=== PATIENT | male | born 1950 | race Two or more races ===

== ENCOUNTER 2022-10-21 19:18 | Emergency (ER) | payer OTHER ==
[~2022-10-21] VITALS: Ht 177.8 cm; Wt 153.0 kg
[2022-10-21 20:28] LABS: Urine Bacteria NONE SEEN /hpf (None Seen); Urine Blood Negative /uL (Negative); Urine WBC <1 /hpf (0 - 3)
[2022-10-21 21:35] LABS: Albumin 3.7 g/dL (3.4-5.0); BUN/Creatinine Ratio 8.7 (10.0-20.0); Calcium 9.5 mg/dL (8.5-10.1); Potassium 4.2 mmol/L (3.5-5.1)
[2022-10-21 21:38] LABS: Bilirubin, Total 0.4 mg/dL (0.2-1.0); Total Protein 7.7 g/dL (6.4-8.2)
[2022-10-21 21:59] LABS: Basophils # (auto) 0.1 10 ^3/uL (0-0.2); Basophils % (auto) 0.8 % (0.0-2.0); Eosinophils # (auto) 0.3 10 ^3/uL (0-0.8); Eosinophils % (auto) 1.9 % (0.0-7.0); Hematocrit 46.8 % (41.0-53.0); Hemoglobin 15.9 g/dL (13.5-17.5); Lymphocytes # (auto) 3.5 10 ^3/uL (0.4-5.4); Lymphocytes % (auto) 25.9 % (10.0-50.0); Mean Corpuscular Hemoglobin 30.7 pg (28.0-32.0); Mean Corpuscular Hgb Conc. 33.9 g/dL (32.0-36.0); Mean Corpuscular Volume 90.6 fL (80.0-100.0); Monocytes # (auto) 0.9 10 ^3/uL (0-1.3); Neutrophils # (auto) 8.7 10 ^3/uL (1.6-8.6); Neutrophils % (auto) 64.4 % (37.0-80.0); Nucleated Red Blood Cells % 0.1 %; Red Blood Cells 5.16 10^6/uL (4.5-5.90); Red Cell Distribution Width 13.9 % (11.8-14.3); White Blood Cell 13.5 10^3/uL (4.4-10.8)
[2022-10-21] MEDS ORDERED: HYDROmorphone HCL 2 MG/ML VL/or syr IV ONE (22:30)
[2022-10-21] MEDS ORDERED: SODIUM CHLORIDE 0.9% 500 ML IV ONE (22:30)
[2022-10-21] MEDS ORDERED: ONDANSETRON HCL 4 MG/2 ML VIAL IV ONE (22:30)
[2022-10-22 05:15] VITALS: BP 143/66
[2022-10-22] MEDS ORDERED: AZIT250T9 PO (05:51)
[2022-10-22] MEDS ORDERED: PERCOT PO (05:51)
== END 2022-10-22 06:28 | disposition home or self-care (01) ==
LOC: ER 19:18
DX: K40.90 Unilateral inguinal hernia, without obstruction or gangrene, not specified as recurrent (principal); Z88.0 Allergy status to penicillin; Z91.040 Latex allergy status
CPT/HCPCS: 36415; 74176; 80053; 81001; 83690; 85025; 96361; 96374; 96375; 99285; J1170; J2405; J7040

== ENCOUNTER 2023-08-14 22:22 | Inpatient (IN) | payer OTHER ==
[~2023-08-14] VITALS: Ht 177.8 cm; Wt 79.9 kg
[~2023-08-14 22:22] MED LIST: AZIT-43 PO; PERCOT PO
[2023-08-14] MEDS: MAALOX PLUS or MAALOX 30 ML PO ONE (23:05)
[2023-08-14] MEDS: LIDOCAINE VISCOUS 2% 15ML UD MT ONE (23:05)
[2023-08-14] MEDS: ONDANSETRON ODT 4 MG TAB PO ONE (23:06)
[2023-08-14 23:07] LABS: Basophils # (auto) 0.2 10 ^3/uL (0-0.2); Basophils % (auto) 1.2 % (0.0-2.0); Eosinophils # (auto) 0.5 10 ^3/uL (0-0.8); Eosinophils % (auto) 3.5 % (0.0-7.0); Hematocrit 48.5 % (41.0-53.0); Hemoglobin 15.8 g/dL (13.5-17.5); Lymphocytes % (auto) 23.2 % (10.0-50.0); Mean Corpuscular Hgb Conc. 32.7 g/dL (32.0-36.0); Mean Corpuscular Volume 91.9 fL (80.0-100.0); Monocytes # (auto) 1.5 10 ^3/uL (0-1.3); Monocytes % (auto) 11.3 % (0.0-12.0); Neutrophils # (auto) 7.9 10 ^3/uL (1.6-8.6); Neutrophils % (auto) 60.8 % (37.0-80.0); Red Blood Cells 5.28 10^6/uL (4.5-5.90); Red Cell Distribution Width 14.7 % (11.8-14.3); White Blood Cell 12.9 10^3/uL (4.4-10.8)
[2023-08-14 23:10] LABS: Urine Bacteria NONE SEEN /hpf (None Seen); Urine Blood Negative /uL (Negative); Urine Clarity Clear (Clear); Urine Color Yellow (Yellow); Urine Hyaline Cast FEW /lpf (0 - 2); Urine Mucus FEW (None Seen); Urine Protein, UAD 2+ (Negative); Urine Specific Gravity 1.025 (1.001-1.035); Urine WBC 1 /hpf (0 - 3)
[2023-08-14 23:13] LABS: Chloride 105 mmol/L (98-107); Potassium 4.2 mmol/L (3.5-5.1); Sodium 139 mmol/L (136-145)
[2023-08-14 23:14] LABS: Anion Gap 8 (5-15); Calcium 9.7 mg/dL (8.7-10.4); Carbon Dioxide 26 mmol/L (20-30)
[2023-08-14 23:19] LABS: BUN/Creatinine Ratio 11.9 (10.0-20.0); Blood Urea Nitrogen 14 mg/dL (9-23); Glucose 117 mg/dL (74-106); Lipase 28 U/L (12-53)
[2023-08-14] MEDS: SODIUM CHLORIDE 0.9% 1,000 ML IV ONE (23:47)
[2023-08-15] VITALS (7 sets, daily range): BP systolic 126–133; BP diastolic 50–66; PULSE 70–75; RESP 16–20; TEMP 97.8–98.8; O2SAT 94–97
[2023-08-15] MEDS: ONDANSETRON HCL 4 MG/2 ML VIAL IV ONE (01:02)
[2023-08-15] MEDS: HYDROmorphone HCL 2 MG/ML VL/or syr IV ONE (01:05)
[2023-08-15] MEDS: PIPERACILLIN-TAZOB 3.375GM 100 ML IV ONE (01:05)
[2023-08-15] MEDS ORDERED: ACETAMINOPHEN 325 MG TAB PO PRN (01:15)
[2023-08-15] MEDS: SODIUM CHLORIDE 0.9% 1,000 ML IV SCH (01:15)
[2023-08-15] MEDS: metroNIDAZOLE 500MG/100ML 100 ML IV ONE (01:36)
[2023-08-15] MEDS: levoFLOXacin 500MG 100 ML IV SCH (03:19)
[2023-08-15 04:45] LABS: Basophils # (auto) 0.1 10 ^3/uL (0-0.2); Eosinophils # (auto) 0.4 10 ^3/uL (0-0.8); Eosinophils % (auto) 3.5 % (0.0-7.0); Hematocrit 42.8 % (41.0-53.0); Hemoglobin 14.2 g/dL (13.5-17.5); Lymphocytes # (auto) 2.5 10 ^3/uL (0.4-5.4); Lymphocytes % (auto) 24.7 % (10.0-50.0); Mean Corpuscular Hemoglobin 30.7 pg (28.0-32.0); Mean Corpuscular Hgb Conc. 33.3 g/dL (32.0-36.0); Mean Corpuscular Volume 92.2 fL (80.0-100.0); Monocytes # (auto) 1.3 10 ^3/uL (0-1.3); Monocytes % (auto) 12.6 % (0.0-12.0); Neutrophils % (auto) 58.2 % (37.0-80.0); Red Blood Cells 4.64 10^6/uL (4.5-5.90); Red Cell Distribution Width 14.7 % (11.8-14.3); White Blood Cell 10.3 10^3/uL (4.4-10.8)
[2023-08-15 05:00] LABS: Alanine Aminotransferase 173 U/L (7-40); Albumin 3.4 g/dL (3.2-4.8); Alkaline Phosphatase 369 U/L (46-116); Anion Gap 6 (5-15); Aspartate Aminotransferase 193 U/L (13-40); BUN/Creatinine Ratio 12.6 (10.0-20.0); Bilirubin, Total 3.6 mg/dL (0.2-1.0); Blood Urea Nitrogen 13 mg/dL (9-23); Calcium 8.7 mg/dL (8.7-10.4); Carbon Dioxide 26 mmol/L (20-30); Chloride 107 mmol/L (98-107); Glucose 76 mg/dL (74-106); Potassium 4.3 mmol/L (3.5-5.1); Sodium 139 mmol/L (136-145); Total Protein 5.7 g/dL (5.7-8.2)
[2023-08-15] MEDS ORDERED: NITROGLYCERIN 0.4 MG SL TAB SL PRN (06:15)
[2023-08-15] MEDS ORDERED: MORPHINE SULFATE INJ 2 MG/ml SYRG IV PRN (06:15)
[2023-08-15 08:04] LABS: Lactic Acid w/Reflex 2.7 mmol/L (0.4-2.0)
[2023-08-15] MEDS: SODIUM CHLORIDE 0.9% 1,000 ML IV ONE (08:33)
[2023-08-15] MEDS: ONDANSETRON HCL 4 MG/2 ML VIAL IV PRN (08:34)
[2023-08-15] MEDS: MORPHINE SULFATE INJ 2 MG/ml SYRG IV PRN (08:35)
[2023-08-15] MEDS: metroNIDAZOLE 500MG/100ML 100 ML IV SCH (13:47)
[2023-08-15] MEDS: HYDROcodone-ACET 5/325MG TAB PO PRN (17:16)
[2023-08-16] VITALS (7 sets, daily range): BP systolic 94–128; BP diastolic 45–60; PULSE 60–88; RESP 16–19; TEMP 97.7–98.4; O2SAT 91–96
[2023-08-16] MEDS: DOCUSATE SOD 100 MG CAP PO PRN (00:01)
[2023-08-16 07:15] LABS: Basophils # (auto) 0.1 10 ^3/uL (0-0.2); Basophils % (auto) 0.9 % (0.0-2.0); Eosinophils # (auto) 0.1 10 ^3/uL (0-0.8); Eosinophils % (auto) 1.2 % (0.0-7.0); Hematocrit 44.1 % (41.0-53.0); Hemoglobin 14.1 g/dL (13.5-17.5); Lymphocytes # (auto) 2.1 10 ^3/uL (0.4-5.4); Lymphocytes % (auto) 19.9 % (10.0-50.0); Mean Corpuscular Hemoglobin 30.2 pg (28.0-32.0); Mean Corpuscular Hgb Conc. 31.9 g/dL (32.0-36.0); Mean Corpuscular Volume 94.6 fL (80.0-100.0); Monocytes # (auto) 1.1 10 ^3/uL (0-1.3); Monocytes % (auto) 10.6 % (0.0-12.0); Neutrophils % (auto) 67.4 % (37.0-80.0); Red Blood Cells 4.66 10^6/uL (4.5-5.90); Red Cell Distribution Width 15.5 % (11.8-14.3); White Blood Cell 10.3 10^3/uL (4.4-10.8)
[2023-08-16 07:36] LABS: INR 1.22 (0.9-1.15); Prothrombin Time 12.6 sec (9.3-11.8)
[2023-08-16 07:48] LABS: Alanine Aminotransferase 147 U/L (7-40); Albumin 3.3 g/dL (3.2-4.8); Alkaline Phosphatase 338 U/L (46-116); Anion Gap 12 (5-15); Aspartate Aminotransferase 190 U/L (13-40); BUN/Creatinine Ratio 16.5 (10.0-20.0); Bilirubin, Total 4.2 mg/dL (0.2-1.0); Blood Urea Nitrogen 17 mg/dL (9-23); Calcium 8.5 mg/dL (8.7-10.4); Carbon Dioxide 20 mmol/L (20-30); Chloride 107 mmol/L (98-107); Glucose 51 mg/dL (74-106); Sodium 139 mmol/L (136-145); Total Protein 5.4 g/dL (5.7-8.2)
[2023-08-16] MEDS: PANTOPRAZOLE 40 MG/10 ML VIAL INJ IV SCH (09:16)
[2023-08-16] MEDS: MAALOX PLUS or MAALOX 30 ML PO PRN (11:19)
[2023-08-16] MEDS: SODIUM CHLORIDE 0.9% 500 ML IV ONE (20:24)
[2023-08-16] MEDS: metroNIDAZOLE 500MG/100ML 100 ML IV SCH (23:57)
[2023-08-17] VITALS (7 sets, daily range): BP systolic 116–133; BP diastolic 58–65; PULSE 62–74; RESP 17–20; TEMP 97.5–98.8; O2SAT 91–94
[2023-08-17 06:26] LABS: % Iron Saturation 44.4 % (20-55)
[2023-08-17 09:24] LABS: Hepatitis B Core Total AB Negative (Negative)
[2023-08-17 11:29] LABS: Triglycerides 87 mg/dL (< 150)
[2023-08-17 11:30] LABS: Alanine Aminotransferase 176 U/L (7-40); Albumin 3.3 g/dL (3.2-4.8); Alkaline Phosphatase 340 U/L (46-116); Anion Gap 7 (5-15); Aspartate Aminotransferase 314 U/L (13-40); BUN/Creatinine Ratio 11.9 (10.0-20.0); Bilirubin, Total 4.6 mg/dL (0.2-1.0); Blood Urea Nitrogen 12 mg/dL (9-23); Calcium 8.5 mg/dL (8.5-10.1); Carbon Dioxide 22 mmol/L (20-30); Chloride 107 mmol/L (98-107); Cholesterol 130 mg/dL (< 200); Glucose 101 mg/dL (74-106); HDL Cholesterol 25 mg/dL (40-59); LDL Cholesterol 64 mg/dL (< 100); Sodium 136 mmol/L (136-145); Total Protein 5.5 g/dL (5.7-8.2)
[2023-08-17 11:32] LABS: INR 1.19 (0.9-1.15); Partial Thromboplastin Time 26.8 SEC (24.5-34.5); Prothrombin Time 12.4 sec (9.3-11.8)
[2023-08-17 11:34] LABS: Hepatitis A Ab IgM Negative; Hepatitis A Total Antibody Negative (Negative); Hepatitis B Core IgM Negative; Hepatitis B Surface Antibody Negative (Negative); Hepatitis B Surface Antigen Negative (Negative); Hepatitis C Antibody Negative (Negative)
[2023-08-17 11:39] LABS: CRP High Sensitivity 6.26 mg/dL (<1.0)
[2023-08-17 11:40] LABS: Lipase 41 U/L (12-53); Magnesium 2.1 mg/dL (1.6-2.6)
[2023-08-17 11:48] LABS: Basophils # (auto) 0.1 10 ^3/uL (0-0.2); Basophils % (auto) 1.1 % (0.0-2.0); Eosinophils # (auto) 0.4 10 ^3/uL (0-0.8); Eosinophils % (auto) 3.6 % (0.0-7.0); Hematocrit 42.9 % (41.0-53.0); Hemoglobin 14.1 g/dL (13.5-17.5); Lymphocytes # (auto) 2.7 10 ^3/uL (0.4-5.4); Lymphocytes % (auto) 26.6 % (10.0-50.0); Mean Corpuscular Hemoglobin 30.5 pg (28.0-32.0); Mean Corpuscular Hgb Conc. 32.9 g/dL (32.0-36.0); Mean Corpuscular Volume 92.6 fL (80.0-100.0); Monocytes # (auto) 1.2 10 ^3/uL (0-1.3); Monocytes % (auto) 11.6 % (0.0-12.0); Neutrophils # (auto) 5.9 10 ^3/uL (1.6-8.6); Neutrophils % (auto) 57.1 % (37.0-80.0); Nucleated Red Blood Cells % 0.2 %; Red Blood Cells 4.64 10^6/uL (4.5-5.90); Red Cell Distribution Width 15.1 % (11.8-14.3); White Blood Cell 10.3 10^3/uL (4.4-10.8)
[2023-08-17 14:15] LABS: Salicylate < 3.0 mg/dL (2.8-20.0)
[2023-08-17] MEDS: URSODIOL 300 MG CAP PO SCH (22:00)
[2023-08-18] VITALS (7 sets, daily range): BP systolic 117–136; BP diastolic 57–66; PULSE 71–76; RESP 16–20; TEMP 97.1–97.9; O2SAT 93–97
[2023-08-18] MEDS: SODIUM CHLORIDE 0.9% 500 ML IV ONE (04:45)
[2023-08-18 05:43] LABS: Basophils # (auto) 0.1 10 ^3/uL (0-0.2); Eosinophils # (auto) 0.2 10 ^3/uL (0-0.8); Eosinophils % (auto) 2.5 % (0.0-7.0); Hemoglobin 13.3 g/dL (13.5-17.5); Lymphocytes # (auto) 2.1 10 ^3/uL (0.4-5.4); Lymphocytes % (auto) 22.2 % (10.0-50.0); Mean Corpuscular Hemoglobin 30.7 pg (28.0-32.0); Mean Corpuscular Hgb Conc. 33.3 g/dL (32.0-36.0); Mean Corpuscular Volume 92.1 fL (80.0-100.0); Monocytes # (auto) 1.1 10 ^3/uL (0-1.3); Monocytes % (auto) 11.8 % (0.0-12.0); Neutrophils % (auto) 62.5 % (37.0-80.0); Nucleated Red Blood Cells % 0.2 %; Red Blood Cells 4.35 10^6/uL (4.5-5.90); Red Cell Distribution Width 15.2 % (11.8-14.3); White Blood Cell 9.5 10^3/uL (4.4-10.8)
[2023-08-18 06:16] LABS: Alanine Aminotransferase 162 U/L (7-40); Albumin 3.2 g/dL (3.2-4.8); Alkaline Phosphatase 328 U/L (46-116); Anion Gap 8 (5-15); Aspartate Aminotransferase 294 U/L (13-40); BUN/Creatinine Ratio 10.5 (10.0-20.0); Blood Urea Nitrogen 10 mg/dL (9-23); Calcium 8.3 mg/dL (8.5-10.1); Carbon Dioxide 22 mmol/L (20-30); Chloride 106 mmol/L (98-107); Glucose 71 mg/dL (74-106); Potassium 4.3 mmol/L (3.5-5.1); Sodium 136 mmol/L (136-145)
[2023-08-18 06:17] LABS: Bilirubin, Direct 4.5 mg/dL (<0.3); Bilirubin, Total 5.5 mg/dL (0.2-1.0); Total Protein 5.2 g/dL (5.7-8.2)
[2023-08-18 06:25] LABS: CRP High Sensitivity 6.34 mg/dL (<1.0)
[2023-08-18 06:37] LABS: Lipase 32 U/L (12-53)
[2023-08-18 06:50] LABS: Lactic Acid w/Reflex 2.8 mmol/L (0.4-2.0)
[2023-08-18] MEDS: IBUPROFEN 600 MG TAB PO PRN (07:51)
[2023-08-18 08:07] LABS: AFP Serum Tumor Marker <1.8 ng/mL (0.0-8.4); Cancer Antigen (CA) 125 43.7 U/mL (Not Estab.)
[2023-08-18] MEDS: CHOLECALCIFEROL (VITD3) 2,000 UNIT CAP/TAB PO SCH (10:10)
[2023-08-18] MEDS: PANTOPRAZOLE 40 MG/10 ML VIAL INJ IV SCH (10:10)
[2023-08-18] MEDS: HYDROmorphone HCL 2 MG/ML VL/or syr IV PRN (11:42)
[2023-08-18] MEDS: SODIUM CHLORIDE 0.9% 1,000 ML IV SCH (14:40)
[2023-08-18 21:06] LABS: CA 27.29 223.7 U/mL (0.0-38.6)
[2023-08-19 05:00] VITALS: BP 124/52; PULSE 76; RESP 20; TEMP 97.6; O2SAT 92
[2023-08-19 06:07] LABS: Alanine Aminotransferase 148 U/L (7-40); Alkaline Phosphatase 336 U/L (46-116); Anion Gap 9 (5-15); Aspartate Aminotransferase 281 U/L (13-40); BUN/Creatinine Ratio 13.5 (10.0-20.0); Bilirubin, Direct 5.3 mg/dL (<0.3); Blood Urea Nitrogen 14 mg/dL (9-23); Calcium 8.2 mg/dL (8.5-10.1); Carbon Dioxide 22 mmol/L (20-30); Chloride 107 mmol/L (98-107); Glucose 57 mg/dL (74-106); Potassium 4.7 mmol/L (3.5-5.1); Sodium 138 mmol/L (136-145)
[2023-08-19 06:08] LABS: Bilirubin, Total 6.3 mg/dL (0.2-1.0); Total Protein 4.8 g/dL (5.7-8.2)
[2023-08-19 06:09] LABS: Basophils # (auto) 0.1 10 ^3/uL (0-0.2); Basophils % (auto) 1.1 % (0.0-2.0); Eosinophils # (auto) 0.2 10 ^3/uL (0-0.8); Eosinophils % (auto) 2.2 % (0.0-7.0); Hematocrit 41.2 % (41.0-53.0); Hemoglobin 13.6 g/dL (13.5-17.5); Lymphocytes # (auto) 1.8 10 ^3/uL (0.4-5.4); Lymphocytes % (auto) 20.3 % (10.0-50.0); Mean Corpuscular Hemoglobin 30.6 pg (28.0-32.0); Mean Corpuscular Hgb Conc. 33.1 g/dL (32.0-36.0); Mean Corpuscular Volume 92.5 fL (80.0-100.0); Monocytes % (auto) 11.6 % (0.0-12.0); Neutrophils # (auto) 5.6 10 ^3/uL (1.6-8.6); Neutrophils % (auto) 64.8 % (37.0-80.0); Nucleated Red Blood Cells % 0.4 %; Red Blood Cells 4.46 10^6/uL (4.5-5.90); Red Cell Distribution Width 15.7 % (11.8-14.3); White Blood Cell 8.7 10^3/uL (4.4-10.8)
[2023-08-19 06:16] LABS: CRP High Sensitivity 7.38 mg/dL (<1.0)
[2023-08-19 06:29] LABS: Lactic Acid w/Reflex 3.3 mmol/L (0.4-2.0)
[2023-08-19 07:24] LABS: Lipase 28 U/L (12-53)
[2023-08-19 08:06] LABS: PSA Free 0.11 ng/mL; Prostate Specific Antigen 0.3 ng/mL (0.0-4.0)
[2023-08-19] MEDS: GADOTERATE MEG 10 MMOL/20ml INJ (0.5MMOL/ml) IV ONE (08:21)
[2023-08-19 08:30] VITALS: BP 106/69; PULSE 76; RESP 18; TEMP 97.7; O2SAT 95
[2023-08-19] MEDS: MIDAZOLAM HCL 2MG/2ML 2ml VIAL (1mg/ml) IV ONE (11:30)
[2023-08-19] MEDS: FUROSEMIDE 40 MG/4 ML VIAL IV ONE (11:30)
[2023-08-19] MEDS: fentaNYL CITRATE 100 MCG/2 ML VL IV ONE (11:30)
[2023-08-19] MEDS: LIDOCAINE 2%HCL (LOCAL ANESTH.) INJ 10ml MDV ONE (11:46)
[2023-08-19] MEDS: GELATIN 1 SPONGE SIZE 50 TOP ONE (11:54)
[2023-08-19 13:30] VITALS: BP 128/61; PULSE 83; RESP 18; TEMP 97.9; O2SAT 97
[2023-08-19 15:42] LABS: INR 1.46 (0.9-1.15); Partial Thromboplastin Time 29.4 SEC (24.5-34.5)
[2023-08-19 16:30] VITALS: BP 119/50; PULSE 87; RESP 17; TEMP 97.9; O2SAT 95
[2023-08-19] MEDS: FUROSEMIDE 40 MG/4 ML VIAL IV SCH (18:51)
[2023-08-19 22:00] VITALS: BP 137/67; PULSE 78; RESP 18; TEMP 98.1; O2SAT 93
[2023-08-19] MEDS: LACTULOSE 20Gm/30ML SOLN PO SCH (22:00)
[2023-08-20 05:00] VITALS: BP 118/67; PULSE 82; RESP 18; TEMP 98; O2SAT 97
[2023-08-20 07:21] LABS: Basophils # (auto) 0 10 ^3/uL (0-0.2); Basophils % (auto) 0.4 % (0.0-2.0); Eosinophils # (auto) 0.1 10 ^3/uL (0-0.8); Eosinophils % (auto) 0.6 % (0.0-7.0); Hematocrit 42.3 % (41.0-53.0); Hemoglobin 14.1 g/dL (13.5-17.5); Lymphocytes % (auto) 18.2 % (10.0-50.0); Mean Corpuscular Hemoglobin 30.8 pg (28.0-32.0); Mean Corpuscular Hgb Conc. 33.3 g/dL (32.0-36.0); Mean Corpuscular Volume 92.4 fL (80.0-100.0); Monocytes # (auto) 1.2 10 ^3/uL (0-1.3); Monocytes % (auto) 10.9 % (0.0-12.0); Neutrophils # (auto) 7.7 10 ^3/uL (1.6-8.6); Neutrophils % (auto) 69.9 % (37.0-80.0); Nucleated Red Blood Cells % 0.1 %; Red Blood Cells 4.58 10^6/uL (4.5-5.90); Red Cell Distribution Width 15.3 % (11.8-14.3)
[2023-08-20 07:33] LABS: Alanine Aminotransferase 145 U/L (7-40); Alkaline Phosphatase 359 U/L (46-116); Anion Gap 11 (5-15); BUN/Creatinine Ratio 13.5 (10.0-20.0); Blood Urea Nitrogen 18 mg/dL (9-23); Calcium 8.9 mg/dL (8.5-10.1); Carbon Dioxide 20 mmol/L (20-30); Chloride 105 mmol/L (98-107); Glucose 83 mg/dL (74-106); Potassium 4.5 mmol/L (3.5-5.1); Sodium 136 mmol/L (136-145)
[2023-08-20 07:34] LABS: Albumin 3.3 g/dL (3.2-4.8); Aspartate Aminotransferase 317 U/L (13-40); Bilirubin, Total 6.6 mg/dL (0.2-1.0); Total Protein 5.6 g/dL (5.7-8.2)
[2023-08-20] MEDS: cefTRIAXone 1GM/50ML D5W 50 ML IV SCH (08:36)
[2023-08-20 13:16] VITALS: BP 129/54; PULSE 84; RESP 19; TEMP 97.5; O2SAT 97
[2023-08-20 22:00] VITALS: BP 126/57; PULSE 90; RESP 18; TEMP 97.8; O2SAT 92
[2023-08-21] VITALS (11 sets, daily range): BP systolic 103–136; BP diastolic 40–58; PULSE 75–88; RESP 18–20; TEMP 97.4–98; O2SAT 94–100
[2023-08-21 06:09] LABS: Basophils # (auto) 0 10 ^3/uL (0-0.2); Basophils % (auto) 0.4 % (0.0-2.0); Eosinophils # (auto) 0 10 ^3/uL (0-0.8); Eosinophils % (auto) 0.1 % (0.0-7.0); Hematocrit 43.6 % (41.0-53.0); Hemoglobin 14.3 g/dL (13.5-17.5); Lymphocytes # (auto) 1.4 10 ^3/uL (0.4-5.4); Lymphocytes % (auto) 11.4 % (10.0-50.0); Mean Corpuscular Hemoglobin 30.7 pg (28.0-32.0); Mean Corpuscular Hgb Conc. 32.7 g/dL (32.0-36.0); Mean Corpuscular Volume 93.9 fL (80.0-100.0); Monocytes # (auto) 1.4 10 ^3/uL (0-1.3); Monocytes % (auto) 11.3 % (0.0-12.0); Neutrophils # (auto) 9.6 10 ^3/uL (1.6-8.6); Neutrophils % (auto) 76.8 % (37.0-80.0); Nucleated Red Blood Cells % 0.3 %; Red Blood Cells 4.64 10^6/uL (4.5-5.90); Red Cell Distribution Width 15.8 % (11.8-14.3); White Blood Cell 12.4 10^3/uL (4.4-10.8)
[2023-08-21 06:28] LABS: Alanine Aminotransferase 278 U/L (7-40); Albumin 3.3 g/dL (3.2-4.8); Alkaline Phosphatase 350 U/L (46-116); Anion Gap 19 (5-15); Aspartate Aminotransferase 785 U/L (13-40); BUN/Creatinine Ratio 17.8 (10.0-20.0); Calcium 8.7 mg/dL (8.7-10.4); Carbon Dioxide 14 mmol/L (20-30); Chloride 101 mmol/L (98-107); Glucose 51 mg/dL (74-106); Magnesium 2.4 mg/dL (1.6-2.6); Sodium 134 mmol/L (136-145)
[2023-08-21 06:29] LABS: Bilirubin, Total 7.3 mg/dL (0.2-1.0); Total Protein 5.7 g/dL (5.7-8.2)
[2023-08-21 06:32] LABS: Blood Urea Nitrogen 33 mg/dL (9-23)
[2023-08-21 06:35] LABS: Potassium 5.6 mmol/L (3.5-5.1)
[2023-08-21 06:36] LABS: Lactic Acid w/Reflex 8.2 mmol/L (0.4-2.0)
[2023-08-21 08:06] LABS: CMV IgG Antibody <0.60 U/mL (0.00-0.59); CMV IgM Antibody <30.0 AU/mL (0.0-29.9); EBV Ab VCA IgG Antibody 90.8 U/mL (0.0-17.9); Immunoglobulin A 205 mg/dL (61-437); Immunoglobulin G, Serum 770 mg/dL (603-1613); Immunoglobulin M 71 mg/dL (15-143); PSA Free 0.11 ng/mL; Prostate Specific Antigen 0.3 ng/mL (0.0-4.0)
[2023-08-21] MEDS: SODIUM CHLORIDE 0.9% 1,000 ML IV ONE ×2 (08:44→12:59)
[2023-08-21] MEDS: SODIUM ZIRCONIUM CYCL 10 GM PAK PO ONE ×2 (08:48→16:27)
[2023-08-21 11:07] LABS: EBV Ab VCA IgM Antibody <36.0 U/mL (0.0-35.9)
[2023-08-21 12:47] LABS: Creatinine, Urine 68.57 mg/dL (30.0-125.0)
[2023-08-21] MEDS: oxyCODONE HCL 5MG TAB PO PRN (13:03)
[2023-08-21] MEDS: ALBUMIN 25% 50 ML IV ONE (13:04)
[2023-08-21 13:22] LABS: Urine Bacteria NONE SEEN /hpf (None Seen); Urine Blood Negative /uL (Negative); Urine Clarity HAZY (Clear); Urine Hyaline Cast FEW /lpf (0 - 2); Urine Protein, UAD Negative (Negative); Urine Specific Gravity 1.013 (1.001-1.035); Urine Urobilinogen Normal (Negative); Urine WBC 2 /hpf (0 - 3)
[2023-08-21 13:24] LABS: Urine Color Yellow (Yellow)
[2023-08-21 13:25] LABS: INR 2.2 (0.9-1.15); Prothrombin Time 21.9 sec (9.3-11.8)
[2023-08-21] MEDS: THIAMINE 100mg/ml INJ (200mg/2ml VIAL) IV ONE (13:38)
[2023-08-21] MEDS: ALBUTEROL SULF 2.5 MG/0.5ML(0.5%) NEB SOLN NEB ONE ×2 (13:51→16:11)
[2023-08-21 13:53] LABS: Lactic Acid w/Reflex 11.1 mmol/L (0.4-2.0)
[2023-08-21 14:01] LABS: Base Excess -16.6 mmol/L (-2.0-2.0)
[2023-08-21 14:10] LABS: Alanine Aminotransferase 565 U/L (7-40); Albumin 3.4 g/dL (3.2-4.8); Alkaline Phosphatase 368 U/L (46-116); Anion Gap 23 (5-15); BUN/Creatinine Ratio 21.3 (10.0-20.0); Calcium 8.7 mg/dL (8.5-10.1); Carbon Dioxide 12 mmol/L (20-30); Chloride 100 mmol/L (98-107); Glucose 51 mg/dL (74-106); Sodium 135 mmol/L (136-145)
[2023-08-21 14:11] LABS: Bilirubin, Total 8.5 mg/dL (0.2-1.0); Blood Urea Nitrogen 44 mg/dL (9-23); Total Protein 5.4 g/dL (5.7-8.2)
[2023-08-21 14:21] LABS: Aspartate Aminotransferase 2025 U/L (13-40)
[2023-08-21] MEDS: D5W 5% 1,000 ML IV ONE (14:23)
[2023-08-21] MEDS: ACCU-CHEK COMFORT CURVE STRIP VI SCH (14:23)
[2023-08-21] MEDS: fentaNYL CITRATE 100 MCG/2 ML VL IV ONE (15:30)
[2023-08-21] MEDS: MIDAZOLAM HCL 2MG/2ML 2ml VIAL (1mg/ml) IV ONE (15:30)
[2023-08-21] MEDS: SODIUM BICARB 50mEq/50ml Vial 100 ML in D5W 5% 1,000 ML IV SCH (16:25)
[2023-08-21] MEDS: LACTULOSE 20Gm/30ML SOLN PO SCH (16:26)
[2023-08-21] MEDS: SODIUM BICARB 8.4% 50Meq/50ml SYR INJ IV ONE (16:26)
[2023-08-21] MEDS: FUROSEMIDE 100 MG/10ML VIAL IV ONE (16:27)
[2023-08-21 16:30] LABS: Alanine Aminotransferase 726 U/L (7-40); Albumin 3.4 g/dL (3.2-4.8); Alkaline Phosphatase 322 U/L (46-116); Anion Gap 21 (5-15); Calcium 8.2 mg/dL (8.7-10.4); Carbon Dioxide 11 mmol/L (20-30); Chloride 99 mmol/L (98-107); Glucose 136 mg/dL (74-106); Sodium 131 mmol/L (136-145)
[2023-08-21 16:31] LABS: Bilirubin, Total 8.3 mg/dL (0.2-1.0); Total Protein 5.6 g/dL (5.7-8.2)
[2023-08-21] MEDS: DEXTROSE (50%) 50ML SYRG IV ONE (16:34)
[2023-08-21 16:41] LABS: Aspartate Aminotransferase 2825 U/L (13-40); Potassium 5.6 mmol/L (3.5-5.1)
[2023-08-21 16:54] LABS: BUN/Creatinine Ratio 18.3 (10.0-20.0); Blood Urea Nitrogen 40 mg/dL (9-23)
[2023-08-21] MEDS: HYDROmorphone HCL 2 MG/ML VL/or syr IV PRN (17:01)
[2023-08-21] MEDS: InsuLIN REG 1unit/0.01ml Soln (100units/ml) IV ONE (17:17)
[2023-08-22 01:03] LABS: Lactic Acid w/Reflex 7.8 mmol/L (0.4-2.0)
[2023-08-22 05:00] VITALS: BP 121/59; PULSE 84; RESP 19; TEMP 97.8; O2SAT 90
[2023-08-22 05:38] LABS: Basophils # (auto) 0.1 10 ^3/uL (0-0.2); Basophils % (auto) 0.5 % (0.0-2.0); Eosinophils # (auto) 0 10 ^3/uL (0-0.8); Eosinophils % (auto) 0.1 % (0.0-7.0); Hematocrit 39.1 % (41.0-53.0); Lymphocytes # (auto) 1.9 10 ^3/uL (0.4-5.4); Lymphocytes % (auto) 9.1 % (10.0-50.0); Mean Corpuscular Hemoglobin 30.7 pg (28.0-32.0); Mean Corpuscular Hgb Conc. 33.2 g/dL (32.0-36.0); Mean Corpuscular Volume 92.5 fL (80.0-100.0); Monocytes # (auto) 1.5 10 ^3/uL (0-1.3); Monocytes % (auto) 7.3 % (0.0-12.0); Neutrophils # (auto) 17.6 10 ^3/uL (1.6-8.6); Nucleated Red Blood Cells % 0.6 %; Red Blood Cells 4.22 10^6/uL (4.5-5.90); Red Cell Distribution Width 15.4 % (11.8-14.3); White Blood Cell 21.2 10^3/uL (4.4-10.8)
[2023-08-22 05:59] LABS: Albumin 3.1 g/dL (3.2-4.8); Alkaline Phosphatase 511 U/L (46-116); Anion Gap 13 (5-15); Aspartate Aminotransferase > 1000 U/L (13-40); BUN/Creatinine Ratio 22.1 (10.0-20.0); Calcium 7.3 mg/dL (8.7-10.4); Carbon Dioxide 19 mmol/L (20-30); Chloride 96 mmol/L (98-107); Glucose 153 mg/dL (74-106); Magnesium 2.5 mg/dL (1.6-2.6); Sodium 128 mmol/L (136-145)
[2023-08-22 06:43] LABS: Alanine Aminotransferase > 1000 U/L (7-40); Blood Urea Nitrogen 55 mg/dL (9-23); Potassium 5.6 mmol/L (3.5-5.1)
[2023-08-22 07:05] LABS: Lactic Acid w/Reflex 4.9 mmol/L (0.4-2.0)
[2023-08-22] MEDS: SODIUM ZIRCONIUM CYCL 10 GM PAK PO ONE ×2 (07:30→08:07)
[2023-08-22 07:31] LABS: INR 2.86 (0.9-1.15); Partial Thromboplastin Time 34.6 SEC (24.5-34.5)
[2023-08-22 08:00] VITALS: PULSE 76; PULSE 80; RESP 20; O2SAT 92
[2023-08-22] MEDS: phytonadione 10 MG in SODIUM CHL 0.9% 50 ML IV ONE (08:02)
[2023-08-22] MEDS: LACTULOSE 20Gm/30ML SOLN PO SCH (08:07)
[2023-08-22] MEDS ORDERED: FURO40TA4 PO (08:41)
[2023-08-22] MEDS ORDERED: SODI10PA PO (08:41)
[2023-08-22] MEDS ORDERED: LACT10SO3 PO (08:41)
[2023-08-22] MEDS ORDERED: URSO300C2 PO (08:41)
[2023-08-22] MEDS ORDERED: CEPH250C PO (08:41)
[2023-08-22] MEDS ORDERED: CHOL1CAP47 PO (08:41)
[2023-08-22] MEDS ORDERED: THI100I IV (08:41)
[2023-08-22] MEDS ORDERED: GICOCKTAIL PO (08:41)
[2023-08-22] MEDS ORDERED: MET500T PO (08:41)
[2023-08-22 09:00] VITALS: BP 129/54; PULSE 80; RESP 20; TEMP 98.7; O2SAT 92
[2023-08-22] MEDS: THIAMINE 100mg/ml INJ (200mg/2ml VIAL) IV SCH (09:04)
[2023-08-22 09:37] VITALS: BP 121/56; TEMP 36.6
[2023-08-22 13:00] VITALS: BP 122/59; PULSE 77; RESP 14; TEMP 97.6; O2SAT 91
== END 2023-08-22 13:40 | disposition hospice, home (50) | DRG 441 ==
LOC: ER 22:22 → OVERFLOW 08-15 06:03 → CENTRAL 08-15 09:44 → TELE-CENTR 08-21 12:03
PROVIDERS: ADMIT Internal Medicine; ATTEND Emergency Medicine
PROC: 0FB13ZX Excision of Right Lobe Liver, Percutaneous Approach, Diagnostic (ICD-10-PCS; principal; 2023-08-19)
DX: B17.9 Acute viral hepatitis, unspecified (principal); N17.0 Acute kidney failure with tubular necrosis; E87.20 Acidosis, unspecified; J98.11 Atelectasis; J84.9 Interstitial pulmonary disease, unspecified; F84.0 Autistic disorder; R18.8 Other ascites; K81.9 Cholecystitis, unspecified; D72.829 Elevated white blood cell count, unspecified; R74.01 Elevation of levels of liver transaminase levels; K76.0 Fatty (change of) liver, not elsewhere classified; E80.6 Other disorders of bilirubin metabolism; Z88.0 Allergy status to penicillin; R59.0 Localized enlarged lymph nodes; I25.10 Atherosclerotic heart disease of native coronary artery without angina pectoris; F17.210 Nicotine dependence, cigarettes, uncomplicated; J43.9 Emphysema, unspecified; N40.0 Benign prostatic hyperplasia without lower urinary tract symptoms; E78.5 Hyperlipidemia, unspecified; E87.5 Hyperkalemia; F02.80 Dementia in other diseases classified elsewhere, unspecified severity, without behavioral disturbance, psychotic disturbance, mood disturbance, and anxiety; E59 Dietary selenium deficiency; I12.9 Hypertensive chronic kidney disease with stage 1 through stage 4 chronic kidney disease, or unspecified chronic kidney disease; N18.32 Chronic kidney disease, stage 3b; R79.89 Other specified abnormal findings of blood chemistry; G30.0 Alzheimer's disease with early onset; Z88.8 Allergy status to other drugs, medicaments and biological substances; Z91.041 Radiographic dye allergy status; Z95.5 Presence of coronary angioplasty implant and graft; Z80.3 Family history of malignant neoplasm of breast; Z80.1 Family history of malignant neoplasm of trachea, bronchus and lung; Z85.820 Personal history of malignant melanoma of skin; Q05.9 Spina bifida, unspecified; Z79.02 Long term (current) use of antithrombotics/antiplatelets; Z86.73 Personal history of transient ischemic attack (TIA), and cerebral infarction without residual deficits
CPT/HCPCS: 36415; 36600; 71045; 71250; 74181; 74183; 76705; 76942; 80048; 80053; 80061; 80074; 80076; 80329; 81001; 82105; 82140; 82248; 82270; 82306; 82378; 82550; 82570; 82607; 82728; 82784; 82805; 82962; 82977; 83010; 83036; 83540; 83550; 83605; 83615; 83690; 83735; 83935; 84154; 84300; 84443; 84484; 85025; 85048; 85610; 85730; 86038; 86141; 86300; 86301; 86304; 86644; 86645; 86664; 86703; 86704; 86706; 86708; 86803; 86850; 86900; 86901; 87045; 87177; 87340; 87427; 93005; 93306; 93970; 94640; 97163; C9113; G0378; J1815; J1956; J2001; J2250; J2405; J2543; J3430; J3490; Q0162